=== PATIENT | female | born 1995 | race Two or more races ===

== ENCOUNTER 2023-05-24 14:34 | Emergency (ER) | payer OTHER ==
[~2023-05-24] VITALS: Ht 165.1 cm; Wt 115.7 kg
[~2023-05-24 14:34] MED LIST: MACRODANTIN100 M1 PO; NITROFURANTOIN100 MG PO; PRENA1 TRUE CO1 EACH PO
== END 2023-05-24 18:00 | disposition home or self-care (01) ==
LOC: ER
DX: R05.9 Cough, unspecified (principal); Z3A.12 12 weeks gestation of pregnancy; Z20.822 Contact with and (suspected) exposure to COVID-19; Z91.013 Allergy to seafood

== ENCOUNTER 2023-09-19 13:35 | Outpatient (CLI) | payer OTHER ==
[~2023-09-19 13:35] MED LIST changes: +FOLIC ACID20 MG PO; +IRON236 MG PO
== END 2023-09-19 13:36 | disposition home or self-care (01) ==
LOC: PRENATAL 13:35
PROVIDERS: ATTEND Obstetrics & Gynecology Maternal & Fetal Medicine
DX: O26.843 Uterine size-date discrepancy, third trimester (principal); O43.93 Unspecified placental disorder, third trimester; O99.213 Obesity complicating pregnancy, third trimester; O40.3XX0 Polyhydramnios, third trimester, not applicable or unspecified; Z3A.28 28 weeks gestation of pregnancy

== ENCOUNTER 2023-10-31 10:55 | Outpatient (CLI) | payer OTHER | END 2023-10-31 10:56 | disposition home or self-care (01) | LOC: PRENATAL 10:55 | PROVIDERS: ATTEND Obstetrics & Gynecology Maternal & Fetal Medicine | DX: O26.843 Uterine size-date discrepancy, third trimester (principal); O36.8130 Decreased fetal movements, third trimester, not applicable or unspecified; O43.893 Other placental disorders, third trimester; Z3A.34 34 weeks gestation of pregnancy ==

== ENCOUNTER 2023-11-30 13:30 | Inpatient (IN) | payer OTHER ==
[~2023-11-30] VITALS: Ht 165.1 cm; Wt 125.6 kg
[2023-12-05] VITALS (8 sets, daily range): BP systolic 105–150; BP diastolic 54–77
[2023-12-05 08:26] LABS: PH,URINE 5.5 (5.0-8.0); URINE APPEARANCE Cloudy; URINE BILIRRUBIN Negative (NEGATIVE); URINE BLOOD Trace; URINE COLOR Dark Yellow; URINE GLUCOSE Negative (NEGATIVE); URINE KETONE Trace (NEGATIVE); URINE LEUKOCYTE Large; URINE NITRATE Negative; URINE PROTEIN 30 (NEGATIVE)
[2023-12-05 08:28] LABS: URINE EPITHELIAL CELLS 112.7 uL (0.0-38.8); URINE RBC 12.6 uL (0.0-20.8); URINE WBC 194.3 uL (0.0-23.2)
[2023-12-05 08:30] LABS: HEMATOCRIT 30.4 % (36.0-45.00); MEAN CORPUSCULAR HEMOGLOBIN 22.3 pg (27.00-32.0); MEAN CORPUSCULAR HGB CONC 32.8 g/dl (32.0-36.0); PLATELET COUNT 251 K/uL (150-450); RED BLOOD COUNT 4.48 M/uL (4.00-6.00)
[2023-12-05 08:43] LABS: MEAN CELL VOLUME 67.9 fL (80.00-100.00); RED CELL DISTRIBUTION WIDTH 16.9 % (11.5-14.5)
[2023-12-05 08:44] LABS: URINE BACTERIA > 9821.5 uL (0.0-1933); URINE CAST 1.06 uL (0.0-1.40)
[2023-12-05 08:45] LABS: URINE CRYSTALS MODERATE /HPF; URINE YEAST MANY /hpf
[2023-12-05] MEDS ORDERED: MISOPROSTOL 25 MCG/4 ML GEL.W.APPL VAG NR (08:48)
[2023-12-05 08:59] LABS: INR < 0.93; PARTIAL THROMBOPLASTIN TIME 31.6 SECONDS (22.0-34.0)
[2023-12-05] MEDS ORDERED: AMPICILLIN SODIUM 2,000 MG VIAL IV ONE (09:00)
[2023-12-05] MEDS ORDERED: RINGERS SOLUTION,LACTATED 1,000 ML IV SCH (09:00)
[2023-12-05] MEDS ORDERED: AMPICILLIN SODIUM 1,000 MG VIAL IV SCH (09:00)
[2023-12-05] MEDS ORDERED: OXYTOCIN 500 ML IV SCH (13:30)
[2023-12-05] MEDS ORDERED: MORPHINE SULFATE 4 MG/ML CARTRIDGE IV ONE (17:45)
[2023-12-05] MEDS ORDERED: IBUprofen 400 MG TABLET PO PRN (20:45)
[2023-12-05] MEDS ORDERED: OXYTOCIN 1,000 ML IV SCH (21:00)
[2023-12-05] MEDS ORDERED: LIDOCAINE HCL 1% 10ML VIAL IJ ONE (21:00)
[2023-12-05] MEDS ORDERED: ERYTHROMYCIN BASE OPHT 1GM EACH TUBE OP ONE (21:00)
[2023-12-05] MEDS ORDERED: CHLORHEXIDINE GLUCONATE 120 ML BOTTLE TOP ONE (21:00)
[2023-12-06 03:11] VITALS: BP 113/70
[2023-12-06 06:48] LABS: HEMATOCRIT 27.9 % (36.0-45.00); HEMOGLOBIN 9.3 g/dL (12.0-15.00); MEAN CORPUSCULAR HEMOGLOBIN 22.9 pg (27.00-32.0); MEAN CORPUSCULAR HGB CONC 33.3 g/dl (32.0-36.0); PLATELET COUNT 220 K/uL (150-450); RED BLOOD COUNT 4.06 M/uL (4.00-6.00); RED CELL DISTRIBUTION WIDTH 16.4 % (11.5-14.5)
[2023-12-06 06:59] LABS: MEAN CELL VOLUME 68.8 fL (80.00-100.00)
[2023-12-06] MEDS ORDERED: PNV,CALCIUM 72/IRON/FOLIC ACID 1 TAB TABLET PO SCH (09:00)
[2023-12-06 09:02] VITALS: BP 102/69
[2023-12-06 16:00] VITALS: BP 107/66
[2023-12-07 02:31] VITALS: BP 124/72
[2023-12-07 08:29] VITALS: BP 114/76
== END 2023-12-07 16:38 | disposition home or self-care (01) | DRG 807 ==
LOC: LDR 12-05 07:22 → OB/GYN 12-05 07:22 → LDR 12-05 13:30 → OB/GYN 12-06 00:31 → LDR 12-07 13:30 → OB/GYN 12-07 16:38
PROVIDERS: ADMIT Obstetrics & Gynecology; ATTEND Obstetrics & Gynecology
PROC: 10E0XZZ Delivery of Products of Conception, External Approach (ICD-10-PCS; principal; 2023-12-05)
PROC: 0UQG7ZZ Repair Vagina, Via Natural or Artificial Opening (ICD-10-PCS; 2023-12-05)
PROC: 4A1HXCZ Monitoring of Products of Conception, Cardiac Rate, External Approach (ICD-10-PCS; 2023-12-05)
DX: O71.4 Obstetric high vaginal laceration alone (principal); Z37.0 Single live birth; Z3A.39 39 weeks gestation of pregnancy; Z20.822 Contact with and (suspected) exposure to COVID-19